=== PATIENT | male | born 1960 | race African-American/Black ===

== ENCOUNTER 2017-02-22 16:48 | Emergency (ER) | payer SELFPAY ==
[2017-02-22 17:24] VITALS: BP 157/100
[2017-02-22] MEDS ORDERED: DIPH/PERTUSS(ACELL)/TETANUS VAC/PF 0.5 ML SYR (>=10YO) IM ONE (17:25)
--- NOTE | 2017-02-22 17:28 | ER Document Report ---
HPI - HPI Patient complains to provider of: laceration Pain Level: 4 Context: Patient is a 56-year-old male who was at [facility] today and they were cutting some screen or his house when he was cut by the knife that she was using. Patient states that he did break the skin and he was concerned since his tetanus is not up-to-date. No bleeding no pain - DERM Skin Color: Normal Past Medical History - Social History Smoking Status: Unknown if Ever Smoked Family History: Reviewed & Not Pertinent Patient has suicidal ideation: No Patient has homicidal ideation: No Renal/ Medical History: Denies: Hx Peritoneal Dialysis Vertical Provider Document - CONSTITUTIONAL Agree With Documented VS: No - BP 157/102 Exam Limitations: No Limitations General Appearance: WD/WN, No Apparent Distress - INFECTION CONTROL TRAVEL OUTSIDE OF THE [place] IN LAST 30 DAYS: No - RESPIRATORY O2 Sat by Pulse Oximetry: 93 - CARDIOVASCULAR Pulses: Normal: Radial - capillary refill less than 2 seconds in all upper extremity digits. - DERM Integumentary: Warm, Dry, No Rash, Laceration - Superficial abrasion Course - Re-evaluation Re-evalutation: 02/22/17 18:37 PATIENT THROUGH THE EPIDERMIS BEEN NO INVOLVEMENT OF THE DERMIS. IRRIGATED WITH BETADINE AND SALINE AND DRESSED WITH BAND-AID. TETANUS IMMUNIZATION UPDATED. DISCHARGED HOME AND FOLLOW-UP WITH PCP - Vital Signs Vital signs: Temp Pulse Resp BP Pulse Ox 98.4 F 51 L 16 157/100 H 93 02/22/17 16:59 02/22/17 16:59 02/22/17 16:59 02/22/17 17:24 02/22/17 16:59 Discharge - Discharge Clinical Impression: Laceration Condition: Good Disposition: HOME, SELF-CARE Instructions: Non-Sutured Laceration ([facility]), Soap Cleansing ([facility]), Antibiotic Ointment Protection ([facility]), Tetanus Immunization Given ([facility]) Forms: Elevated Blood Pressure
== END 2017-02-22 18:00 | disposition home or self-care (01) ==
LOC: ER 16:48
DX: T14.8 Other injury of unspecified body region (principal); W26.0XXA Contact with knife, initial encounter; Y93.89 Activity, other specified; Y92.512 Supermarket, store or market as the place of occurrence of the external cause; Z23 Encounter for immunization
CPT/HCPCS: 90471; 90715; 99282